=== PATIENT | female | born 1980 | race Caucasian/White ===

== ENCOUNTER 2017-01-11 17:43 | Emergency (ER) | payer MEDICAID, SELFPAY ==
[2017-01-11] MEDS ORDERED: Acetaminophen 500 MG TAB ONE (18:25)
[2017-01-11] MEDS ORDERED: Ibuprofen 800 MG TAB ONE (18:25)
[2017-01-11] MEDS ORDERED: Oseltamivir 75 MG CAP ONE (18:56)
== END 2017-01-11 19:05 | disposition home or self-care (01) ==
LOC: NAV ERS 17:43
DX: J11.1 Influenza due to unidentified influenza virus with other respiratory manifestations (principal); I10 Essential (primary) hypertension; J45.909 Unspecified asthma, uncomplicated; E03.9 Hypothyroidism, unspecified; F41.9 Anxiety disorder, unspecified
CPT/HCPCS: 99283

== ENCOUNTER 2018-04-15 11:31 | Emergency (ER) | payer MEDICAID, OTHER ==
[2018-04-15] MEDS ORDERED: Ibuprofen 800 MG TAB ONE (11:54)
== END 2018-04-15 12:27 | disposition home or self-care (01) ==
LOC: NAV ERS 11:31
DX: J02.9 Acute pharyngitis, unspecified (principal); H61.21 Impacted cerumen, right ear; J45.909 Unspecified asthma, uncomplicated; I10 Essential (primary) hypertension; C44.501 Unspecified malignant neoplasm of skin of breast
CPT/HCPCS: 87081; 87430; 99283